=== PATIENT | male | born 1975 | race Caucasian/White ===

== ENCOUNTER 2021-04-04 14:43 | Emergency (ER) | payer OTHER, SELFPAY ==
[2021-04-04 14:57] VITALS: BP 157/104; PULSE 92; RESP 16; TEMP 37; O2SAT 98
--- NOTE | 2021-04-04 15:00 | ED.SKABFB ---
HPI - Skin/Abscess/Foreign Bdy General Chief complaint: Skin/Abscess/Foreign Body Stated complaint: Lt side cyst Time Seen by Provider: 04/04/21 15:00 Source: patient and RN notes reviewed Mode of arrival: ambulatory Limitations: no limitations History of Present Illness HPI narrative: Juice is a 45-year-old male patient who ambulated into the [facility]. Patient states he has a small cyst on his left mid axillary line that is increasing in size. Patient states that it is red and swollen. Patient denies any drainage at this time. Patient states he had this previously several years ago and was treated with antibiotics. MD complaint: abscess/boil Related Data Home Medications Medication Instructions Recorded Confirmed divalproex 500 mg tablet,delayed 500 mg PO Q12H 04/13/19 release Allergies Allergy/AdvReac Type Severity Reaction Status Date / Time No Known Allergies Allergy Verified 06/24/20 09:31 Review of Systems Review of Systems: CONSTITUTIONAL: Denies body aches, fever, chills, or sweats. EYES: Denies visual changes, redness, or discharge. ENT: Denies rhinorrhea, congestion, sore throat, or otalgia. CARDIOVASCULAR: Denies chest pain, palpitations, or edema. RESPIRATORY: Denies cough or dyspnea. GASTROINTESTINAL: Denies abdominal pain, nausea, vomiting, or diarrhea. GENITOURINARY: Denies dysuria or hematuria. SKIN: Denies rash, itching, + red swollen cyst on left chest MUSCULOSKELETAL: Denies back pain, joint pain, or myalgia. NEUROLOGIC: Denies headache, numbness, tingling, or weakness. PSYCH: Denies depression or anxiety. [facility] Family History Family History Father Hypertension Family history of chronic obstructive pulmonary disease Social History Social History Smoking status: Current every day smoker Tobacco type: e-cigarettes/vaping Alcohol intake: current Comments At time of signature, I have reviewed and agree with nursing past medical, surgical, social and family history unless otherwise noted. Please see nursing chart for further information. There is no relevant family history pertinent to the presenting complaint Exam Narrative: GENERAL: Well-appearing, well-nourished, and in no acute distress. HEAD: Normocephalic, atraumatic. EYES: EOMI. No redness or drainage. Conjunctivae normal. ENT: Mucous membranes pink and moist. Nares clear. No rhinorrhea. NECK: Normal AROM. Supple. No lymphadenopathy. MUSCULOSKELETAL: No bony tenderness. EXTREMITIES: Normal range of motion. No edema. SKIN: Warm, dry, no rash. Capillary refill normal. Normal skin turgor. 6 cm erythemic area nonfluctuant without drainage, edematous. NEURO: No focal deficits. Alert and oriented x3. Gait steady. PSYCH: Normal affect. No signs of depression or anxiety. MDM - Skin/Abscess/Foreign Bdy MDM Narrative Medical decision making narrative: Patient has a 6 cm abscess on his left mid axillary line. Area is nonfluctuant. Area is erythemic. Differential Diagnosis Differential diagnosis: Likely abscess of skin or subcutaneous tissue, dermatophytosis, cellulitis and impetigo Discharge Plan Discharge Clinical Impression: Abscess of skin or subcutaneous tissue Qualifiers: Site of cutaneous abscess: trunk Site of cutaneous abscess of trunk: unspecified site Qualified Code(s): L02.219 - Cutaneous abscess of trunk, unspecified Patient Disposition: Home, Self-Care Condition: Stable Instructions: Antibiotic Form, Cellulitis (ED), Cyst (ED) Additional Instructions: Keep area clean and dry. Wash with mild soap and water such as Dial twice daily. Follow-up with your primary care physician after completion of antibiotics for any concerns. Take your antibiotics as prescribed and until completely gone. Take ibuprofen as directed. May use Tylenol for fever and pain. Patient Language: Abdelrahman
== END 2021-04-04 15:23 | disposition home or self-care (01) ==
PROVIDERS: Emergency Provider Nurse Practitioner Family; PCP Family Medicine
DX: L02.213 Cutaneous abscess of chest wall (principal); F17.290 Nicotine dependence, other tobacco product, uncomplicated
CPT/HCPCS: 99213; G0463

== ENCOUNTER → 2021-05-15 01:17 | Outpatient (CLI) | payer OTHER, SELFPAY ==
[2021-05-16 13:55] LABS: SARS-CoV-2 RNA PCR Negative
== END ==
PROVIDERS: PCP Family Medicine; Visit Provider Physician Assistant
DX: R68.89 Other general symptoms and signs (principal); Z20.822 Contact with and (suspected) exposure to COVID-19
CPT/HCPCS: C9803; U0003; U0005

== ENCOUNTER 2021-09-24 18:33 | Emergency (ER) | payer OTHER, SELFPAY ==
[2021-09-24 18:35] VITALS: BP 159/98; PULSE 75; RESP 16; TEMP 35.5; O2SAT 98
--- NOTE | 2021-09-24 20:27 | PC.NURSE ---
2015- Pt walked up to intake desk asking for pt bracelet to be taken off and said that he wanted to leave
== END 2021-09-24 20:56 | disposition left against medical advice (07) ==
PROVIDERS: PCP Family Medicine
DX: R10.10 Upper abdominal pain, unspecified (principal)
CPT/HCPCS: 99199

== ENCOUNTER → 2022-08-13 14:14 | Outpatient (CLI) | payer OTHER, SELFPAY ==
--- NOTE | ~2022-08-13 | US_ITS ---
EXAMINATION: US soft tissue head and neck DATE: 08/13/2022 14:26 INDICATION: Posterior neck mass. TECHNIQUE: Multiple grayscale and Doppler ultrasound images of the neck were obtained. COMPARISON: None FINDINGS: There is a 1.9 x 1.0 x 1.7 cm subcutaneous hypoechoic mass in the posterior neck with small tract in the skin. IMPRESSION: 1. 1.9 cm subcutaneous mass in the posterior neck, most likely a sebaceous cyst. Reviewed, dictated and finalized at location A. IMPRESSION: 1. 1.9 cm subcutaneous mass in the posterior neck, most likely a sebaceous cyst .
== END ==
PROVIDERS: PCP Family Medicine; Visit Provider Family Medicine
DX: M54.2 Cervicalgia (principal)
CPT/HCPCS: 76536

== ENCOUNTER 2023-10-09 14:22 | Outpatient (CLI) | payer OTHER, SELFPAY ==
[2023-10-09 15:54] LABS: Valproic Acid 58.2 ug/mL (50-120)
== END 2023-10-09 14:23 | disposition home or self-care (01) ==
LOC: ANHSURGERY 14:27
PROVIDERS: Anesthesiology; PCP Family Medicine; Visit Provider Surgery
DX: Z01.818 Encounter for other preprocedural examination (principal); Z79.899 Other long term (current) drug therapy
CPT/HCPCS: 36415; 80164

== ENCOUNTER 2023-10-16 01:16 | Day surgery (SDC) | payer OTHER, SELFPAY ==
[2023-10-08 14:12] VITALS: BMI 36.6
--- NOTE | 2023-10-08 14:19 | PC.NURSE ---
Report to the Outpatient Waiting Room, entrance under the green pavilion located off [facility], at time _0630_ on date _[id number]_. Planned Procedure Time: _0830_. Time changes happen often and if your time is changed the preop area will call you the afternoon before. - You and your visitor will be asked to self-screen and do not enter if you have any COVID symptoms. - A mask is optional within the hospital at this time. Patients may have clear liquids (water, carbonated beverages, clear teas, apple juice) until 3 hours prior to surgery with a maximum of 20 ounces. - No food from midnight until time of surgery Take the following medications with a SIP of water the morning of surgery: ___Depakote DO NOT STOP ANY OF YOUR OTHER PRESCRIPTION MEDICATIONS PRIOR TO SURGERY ?EXCEPT THE FOLLOWING Medications to discontinue per physician Fish oil Date to take last [id number] Please no make-up, nail swiss, hairspray, perfume, deodorant, or body powder the day of surgery. No jewelry (including any body piercings) or valuables the day of surgery, leave them at home. Please take a shower or bath the night before, or the morning of, surgery with an antibacterial soap. Wear comfortable, loose fitting clothing. - Jewelry must be removed prior to entering the operating room. Rings and piercings that are not removed may be cut off. - The hospital will not accept responsibility for valuables. - Please leave all valuables, including medications, at home the day of surgery. If you are going home after surgery, a licensed water tanker driver must drive you home. - NO public transportation without another adult if you receive anesthesia. - We recommend that an adult stay with you for 24 hours following discharge. - We also recommend that you do not drive, make important decision, drink alcoholic beverages, or take any drugs that were not prescribed by your health care provider for at least 24 hours after your discharge time. Follow any additional instructions given to you from your surgeon. If you or anyone in your household have experienced Covid symptoms in the past week, please notify your surgeon or the nurse liaison at the phone number below for possible testing. Telephone instructions given to __Paul___and asked if any additional questions and then verbalized understanding. Patient advised to call surgeon office or pre surgery nurse liaison [phone] if any additional questions.
--- NOTE | 2023-10-15 15:41 | PM.SD2 ---
Same Day Admit/Disch: HPI History of Present Illness Chief complaint: skin cyst left flank Narrative: Vlad Man is a 48 year old male who presented last April with a left flank abscess due to an infected inclusion cyst. This was incised and drained in the office. Cultures showed only normal skin jas. The wound went on to heal but cyst remnants remain. He is taken to surgery at this time for excision of the inclusion cyst of the left flank. [facility] Surgical History Surgical History History of incision and drainage I&D of left flank abscess on 05/02/23 DEONTE Family History Family History Father Hypertension Family history of chronic obstructive pulmonary disease Social History Social History Smoking status: Current every day smoker Tobacco type: e-cigarettes/vaping Alcohol intake: current Lack of Transportation: No Lack of Food: Never True Current Housing: I Have Housing Concerned About Future Housing: No Difficulty Paying Gas/Electric Bills: No Difficulty Paying for Meds: No Currently Unemployed: No Education: Master's Degree or Higher Living arrangements: with family Spiritual care concerns: No Same Day Admit/Disch: Med Pre-admit Medications Home Medications Medication Instructions Recorded Confirmed Type divalproex 500 mg tablet,delayed 500 mg PO Q12H 04/13/19 10/16/23 History release (Depakote) lisinopril 20 mg tablet See Rx Instructions .Route 02/25/23 10/16/23 Rx .COMPLEX #90 tabs omega 1-kfn-pul-fish oil 1,200 mg 1 cap PO DAILY 10/08/23 10/16/23 History (144 mg-216 mg) capsule (Fish Oil) rosuvastatin 10 mg tablet 10 mg PO DAILY #30 tabs 10/14/23 10/16/23 Rx tramadol 50 mg tablet 50 mg PO Q6H PRN pain #7 tabs 10/16/23 Rx Review of Systems Review of Systems All systems reviewed & are unremarkable except as noted in HPI and below (HPI) Exam Const: General: comfortable, no acute distress, alert and awake HENMT: Head: normocephalic and atraumatic Mouth: Yes Normal oral and palatal mucosa present Eyes: Conjunctivae: conjunctivae normal Pupils: Equal, round and reactive pupils present EOM: EOMs intact bilaterally Neck: Neck: normal visual inspection, no lymphadenopathy and nontender Resp: Effort & Inspection: normal respiratory effort Auscultation: clear to auscultation bilaterally Cardio: Rate: regular rate Rhythm: regular rhythm Heart sounds: no gallops, no murmurs and no rubs GI: Inspection: non-distended GI Palp: Yes Soft to palpation, No Tenderness to palpation present (GI), No Hepatomegaly present and No Splenomegaly present Skin: General skin exam: no erythema Lesions: lesion noted (3 cm scar left flank from incision and drainage, residual cyst nodule) Rashes: no rashes Neuro: General: no focal motor deficits and CN's II-XI intact bilaterally Cranial nerves: Yes Equal, round and reactive pupils present, Yes Bilaterally intact EOM present, Yes facial symmetry and Yes Midline tongue present Speech: normal speech Motor exam (neuro): 5/5 motor strength present throughout and Motor abnormalities not present Extrem: General: no clubbing, cyanosis or edema and edema Psych: Affect: normal affect Thought process: Normal thought process present Insight: Good insight present (Psych) DS: Summary Time Spent with Patient Time attestation: Total time spent providing and/or coordinating discharge services: DS: Admitting Diagnosis Discharge Date 10/16/2023 Admitting Diagnosis Infected left flank inclusion cyst with abscess-drained April 2023. Wound has gone on to heal. Left flank inclusion cyst-patient desires removal to avoid recurrent cyst and possible recurrent abscess. He is taken to surgery as an outpatient for this purpose. The procedure, benefits, alternatives, risks have bee
[2023-10-16 06:30] VITALS: BP 175/103; PULSE 71; RESP 20; TEMP 36.9; O2SAT 97
[2023-10-16] MEDS: LACTATED RINGERS 1,000 ML 30 ML IV CONT (06:35)
--- NOTE | 2023-10-16 07:20 | WPDHPUPDATE1 ---
History and Physical Update Update Date/Time: 10/16/23 07:20 History and Physical has been reviewed, including an updated exam of the patient. There are NO changes in the patient's condition. Risks, benefits, and alternatives have been discussed and questions answered. Patient agrees to proceed with procedure.
--- NOTE | 2023-10-16 07:21 | P.PNAN_ITS ---
Anes - Eval Pre Procedure Procedure: Operation Date: 10/16/23 07:30 Proposed Procedures p Excision Skin Cyst Left Flank - Yair Miller MD Date/Time: 10/16/23 07:21 Pre Op Diagnosis: skin cyst left flank Patient Data Age: 48 Gender: M Height: 1.88 m Weight: 132.2 kg Allergies Allergy/AdvReac Type Severity Reaction Status Date / Time No Known Allergies Allergy Verified 10/16/23 06:05 Home Medications Medication Instructions Recorded Confirmed Type divalproex 500 mg tablet,delayed 500 mg PO Q12H 04/13/19 10/16/23 History release (Depakote) lisinopril 20 mg tablet See Rx Instructions .Route 02/25/23 10/16/23 Rx .COMPLEX #90 tabs omega 4-gzb-osv-fish oil 1,200 mg 1 cap PO DAILY 10/08/23 10/16/23 History (144 mg-216 mg) capsule (Fish Oil) rosuvastatin 10 mg tablet 10 mg PO DAILY #30 tabs 10/14/23 10/16/23 Rx Patient hx anesthesia problems: none Family hx anesthesia problems: none Results Review: All pre-operative results and documents have been reviewed as part of the pre- operative evaluation. [facility] Surgical History Surgical History History of incision and drainage I&D of left flank abscess on 05/02/23 DEONTE Family History Family History Father Hypertension Family history of chronic obstructive pulmonary disease Social History Social History Smoking status: Current every day smoker Tobacco type: e-cigarettes/vaping Alcohol intake: current Lack of Transportation: No Lack of Food: Never True Current Housing: I Have Housing Concerned About Future Housing: No Difficulty Paying Gas/Electric Bills: No Difficulty Paying for Meds: No Currently Unemployed: No Education: Master's Degree or Higher Living arrangements: with family Spiritual care concerns: No Exam Day of Procedure 10/16/23 07:21
--- NOTE | 2023-10-16 07:23 | SUR.PREOP ---
DR KOO AWARE OF HIGH BP. RECHECK 170/110
[2023-10-16] MEDS: ceFAZolin 3 GM/D5W 100 ML 100 ML IVPB (07:25)
--- NOTE | 2023-10-16 07:25 | P.PNAN_ITS ---
Anes - Eval Final PreProcedure Day of Procedure 10/16/23 07:25 Patient weight: obese Heart: regular rate and rhythm Lungs: clear to auscultation Airway: Mallampati scale class III Neurological: alert and oriented Last oral intake: >/= 8 hours ASA classification: III Emergent: no Anesthetic plan: proceed Anesthesia type and monitoring: general GIVS (may use LMA) and standard monitoring Results Review: All pre-operative results and documents have been reviewed as part of the pre- operative evaluation. Informed Consent: The patient's anesthetic plan and its attendant risks and benefits were discu ssed with the patient/family/POA. Questions were solicited and answers provided to the satisfaction of the patient/family/POA.
[2023-10-16] MEDS: BUPIVACAINE/EPINEPHRINE 0.5% 50 ML VIAL 30 ML INFILTRATE (07:44)
[2023-10-16 08:01] VITALS: BP 147/83; PULSE 86; RESP 16; O2SAT 94
--- NOTE | 2023-10-16 08:16 | W.PM.PROC2 ---
Procedure Note - Detailed Date of Procedure 10/16/23 Pre-op Diagnosis skin cyst left flank Post-op Diagnosis Same Procedure Performed Excision 3 cm inclusion cyst left flank with 2 mm margins, 3.4 cm excision. 7.5 cm layered closure. Surgeon Yair Miller MD [employer] [facility] Anesthesia MAC and Local Indications Patient had an abscess in the left flank due to an infected inclusion cyst in April. This was incised and drained. It went on to heal uneventfully. He is taken to surgery at this time for excision of the cyst remnants to prevent recurrence. Findings Previous scar was 3 cm in length. There was a nodule in the center of the scar consistent with persistent cyst. Cyst was excised with 2 mm margins. No entry into the cyst was made. Description of Procedure Patient is seen in the preoperative holding area. The area of the cyst on the left flank was marked on the skin as was the proposed elliptical excision. Patient was taken to surgery and then given anesthesia after being placed in right lateral decubitus position. The area of the cyst on the left flank was then prepped and draped. Local was infiltrated over the previously marked ellipse to anesthetize the skin and subcutaneous. Elliptical incision was made through the skin. Cautery was used for hemostasis. The skin and associated cyst were elevated and dissection was carried deep to the cyst but at least 2 mm from any of the cyst contents circumferentially. Cautery was then used for hemostasis. The wound was closed with a deep layer of 4-0 interrupted Vicryl suture. Subcuticular interrupted 4-0 Vicryl skin stitches were then placed to loosely approximate the skin. Finally the skin was closed with a running 4-0 Monocryl skin suture. The wound was dressed with Exofin surgical adhesive. The patient was awakened and taken to outpatient recovery in good condition. Sponge and needle counts were correct x2. Estimated Blood Loss -5 Pathology Yes (Skin cyst left flank) Complications No immediate complications Condition Stable Disposition Same day [facility] Billing Surgery - Charge Forward: Surgery Billing (Excision 3 cm skin cyst of the flank with 2 mm margins, 3.4 cm excision. 7.5 cm layered closure.)
[2023-10-16 08:30] VITALS: BP 142/97; PULSE 72; RESP 20
[2023-10-16 09:00] VITALS: BP 154/94; PULSE 73; RESP 20
== END 2023-10-16 09:05 | disposition home or self-care (01) ==
PROVIDERS: PCP Family Medicine; Visit Provider Surgery
PROC: (CPT 11404; principal; 2023-10-16 07:30)
DX: L72.0 Epidermal cyst (principal); F17.290 Nicotine dependence, other tobacco product, uncomplicated
CPT/HCPCS: 11404; 12032; 36415; 80164; 88305; J0360; J0690; J1100; J2250; J2405; J2704; J3010; J7120

== ENCOUNTER 2023-11-06 10:16 | Day surgery (SDC) | payer OTHER, SELFPAY ==
[2023-10-29 15:06] VITALS: BMI 37.2
[2023-10-30 12:41] VITALS: BMI 36.2
--- NOTE | 2023-11-06 07:35 | WPDANESEPPF ---
Anes - Initial Pre Proc Eval Procedure: Operation Date: 11/06/23 12:30 Proposed Procedures p Screening Colonoscopy - Caden Aragon MD <Nick Reeves DO - Last Filed: 11/06/23 14:16> Date/Time: 11/06/23 07:35 <Nick Reeves DO - Last Filed: 11/06/23 14:16> Surgeon: Caden Aragon MD <Nick Reeves DO - Last Filed: 11/06/23 14:16> Pre Op Diagnosis: Neoplasm Screening <Nick Reeves DO - Last Filed: 11/06/23 14:16> Patient Data Age: 48 Gender: M Height: 1.88 m Weight: 128 kg <Nick Reeves DO - Last Filed: 11/06/23 14:16> Allergies Allergy/AdvReac Type Severity Reaction Status Date / Time No Known Allergies Allergy Verified 11/06/23 12:31 <Nick Reeves DO - Last Filed: 11/06/23 14:16> Home Medications Medication Instructions Recorded Confirmed Type omega 4-abj-qja-fish oil 1,200 mg 1 cap PO DAILY 10/08/23 11/01/23 History (144 mg-216 mg) capsule (Fish Oil) divalproex 500 mg tablet,delayed 500 mg PO Q12H #180 tabs 10/21/23 11/01/23 Rx release (Depakote) lisinopril 20 mg tablet 20 mg PO DAILY #90 tabs 10/21/23 11/01/23 Rx rosuvastatin 10 mg tablet 10 mg PO DAILY #90 tabs 10/21/23 11/01/23 Rx sodium,potassium,mag sulfates 17.5 See Rx Instructions PO .COMPLEX 11/04/23 Rx gram-3.13 gram-1.6 gram oral soln #354 mL (Suprep Bowel Prep Kit) <Nick Reeves DO - Last Filed: 11/06/23 14:16> Patient hx anesthesia problems: none <Alex Thomas CRNA - Last Filed: 11/06/23 12:25> Family hx anesthesia problems: none <Alex Thomas CRNA - Last Filed: 11/06/23 12:25> Results Review: All pre-operative results and documents have been reviewed as part of the pre-operative evaluation. <Nick Reeves DO - Last Filed: 11/06/23 14:16> [facility] Past Medical History Medical History: Medical History Epilepsy Hyperlipemia Hypertension <Nick Revees DO - Last Filed: 11/06/23 14:16> Surgical History Surgical History: Surgical History H/O excision of mass 10/16/23 Excision 3 cm inclusion cyst left flank with 2 mm margins, 3.4 cm excision. 7.[address] Miller History of incision and drainage I&D of left flank abscess on 05/02/23 DEONTE <Nick Reeves DO - Last Filed: 11/06/23 14:16> Family History Family History: Family History Father Hypertension Family history of chronic obstructive pulmonary disease <Nick Reeves DO - Last Filed: 11/06/23 14:16> Social History Social History: Social History Smoking packs per day: 1 Smoking cigarettes per day: 20.0 Years smoked: 20 Smoking pack-years: 20.00 Smoking status: Current every day smoker Tobacco type: e-cigarettes/vaping Alcohol intake: current Drinks per week: 3 Alcohol use details: SOCIALLY Substance use: never Substance use type: does not use Do You Feel Safe in your Home?: Yes Lack of Transportation: No Lack of Food: Never True Current Housing: I Have Housing Concerned About Future Housing: No Difficulty Paying Gas/Electric Bills: No Difficulty Paying for Meds: No Currently Unemployed: No Education: Master's Degree or Higher Living arrangements: with family Occupation/Education: occupation Gender identity (if verbalized by the patient): Male Spiritual care concerns: No Agree to blood products: Yes <Nick Reeves DO - Last Filed: 11/06/23 14:16> Anes - Eval Final PreProcedure Day of Procedure 11/06/23 07:35 <Nick Reeves DO - Last Filed: 11/06/23 14:16> Patient weight: normal <Alex Thomas CRNA - Last Filed: 11/06/23 12:25> Heart: regular rate and r
[2023-11-06 12:00] VITALS: BP 151/98; PULSE 77; RESP 18; TEMP 36.9; O2SAT 99; BMI 36.6
[2023-11-06] MEDS: LACTATED RINGERS 1,000 ML 150 ML IV CONT (12:20)
--- NOTE | 2023-11-06 13:13 | PM.HPGS ---
History of Present Illness History of Present Illness Consent: Risks, benefits, and alternatives have been discussed and questions answered. Patient agrees to proceed with procedure. Chief complaint: Neoplasm Screening Narrative: Vlad Man is a 48 year old male as presents for screening colonoscopy. Patient's current weight appetite and bowel movements are normal. Patient denies abdominal pain. Has had no bleeding. Family history noncontributory. Review of Systems Review of Systems: All systems reviewed & are unremarkable except as noted in HPI and below PMFSH Past Medical History Medical History Epilepsy Hyperlipemia Hypertension Surgical History Surgical History H/O excision of mass 10/16/23 Excision 3 cm inclusion cyst left flank with 2 mm margins, 3.4 cm excision. 7.[address] Miller History of incision and drainage I&D of left flank abscess on 05/02/23 DEONTE Family History Family History Father Hypertension Family history of chronic obstructive pulmonary disease Social History Social History Smoking packs per day: 1 Smoking cigarettes per day: 20.0 Years smoked: 20 Smoking pack-years: 20.00 Smoking status: Current every day smoker Tobacco type: e-cigarettes/vaping Alcohol intake: current Drinks per week: 3 Alcohol use details: SOCIALLY Substance use: never Substance use type: does not use Do You Feel Safe in your Home?: Yes Lack of Transportation: No Lack of Food: Never True Current Housing: I Have Housing Concerned About Future Housing: No Difficulty Paying Gas/Electric Bills: No Difficulty Paying for Meds: No Currently Unemployed: No Education: Master's Degree or Higher Living arrangements: with family Occupation/Education: occupation Gender identity (if verbalized by the patient): Male Spiritual care concerns: No Agree to blood products: Yes Meds Home Medications and Allergies Home Medications Medication Instructions Recorded Confirmed Type omega 8-blj-rog-fish oil 1,200 mg 1 cap PO DAILY 10/08/23 11/01/23 History (144 mg-216 mg) capsule (Fish Oil) divalproex 500 mg tablet,delayed 500 mg PO Q12H #180 tabs 10/21/23 11/01/23 Rx release (Depakote) lisinopril 20 mg tablet 20 mg PO DAILY #90 tabs 10/21/23 11/01/23 Rx rosuvastatin 10 mg tablet 10 mg PO DAILY #90 tabs 10/21/23 11/01/23 Rx sodium,potassium,mag sulfates 17.5 See Rx Instructions PO .COMPLEX 11/04/23 Rx gram-3.13 gram-1.6 gram oral soln #354 mL (Suprep Bowel Prep Kit) Allergies Allergy/AdvReac Type Severity Reaction Status Date / Time No Known Allergies Allergy Verified 11/06/23 12:31 Vital Signs Vital Signs - 24 hr 11/06/23 12:00 Temperature 98.5 F Pulse Rate 77 Respiratory Rate 18 Blood Pressure 151/98 H Pulse Oximetry 99 Oxygen Delivery Room Air Exam Narrative: Physical exam reveals patient. Vital signs stable. HEENT exam is unremarkable. Patient is anicteric. Is are clear to auscultation and percussion is without murmur or extra sounds. Abdomen bowel sounds are present soft nontender with no organomegaly. Digital external rectal exam normal. Assessment and Plan Assessment and plan (1) Screening for colon cancer: Code(s): Z12.11 - Encounter for screening for malignant neoplasm of colon Status: Acute Assessment and Plan: Patient presents for screening colonoscopy. He appears to be at average risk for colon polyps. Further recommendations may be given after endoscopy.
[2023-11-06 13:42] VITALS: BP 146/107; PULSE 86; RESP 16; O2SAT 98
[2023-11-06 13:52] VITALS: BP 141/105; PULSE 83; RESP 16; O2SAT 98
[2023-11-06 14:02] VITALS: BP 133/108; PULSE 71; RESP 20; O2SAT 99
--- NOTE | 2023-11-06 14:16 | WPDANESPN ---
Anes - Prog Note Post-Op Date/Time: 11/06/23 14:16 Cardiovascular status: normal Respiratory status: normal Airway patency: baseline Mental status: baseline Post-Op hydration status: normal Vital Signs: Last Vital Signs Temp 36.9 C 11/06/23 12:00 Pulse 71 11/06/23 14:02 Resp 20 11/06/23 14:02 BP 133/108 H 11/06/23 14:02 Pulse Ox 99 11/06/23 14:02 O2 Del Method Room Air 11/06/23 14:02 Pain Score (VAS): 0 I/O: Intake & Output 11/05/23 11/06/23 11/06/23 23:59 07:59 15:59 Intake Total 450 Balance 450 Post-procedural complaints: none Patient Feedback: Patient satisfied with anesthetic care. Other Findings: Patient vital signs back to baseline. Patient denies nausea and vomiting. Patient's pain under control. Patient OK for discharge.
== END 2023-11-06 14:07 | disposition home or self-care (01) ==
PROVIDERS: PCP Family Medicine; Visit Provider Internal Medicine Gastroenterology
PROC: 0DJD8ZZ Inspection of Lower Intestinal Tract, Via Natural or Artificial Opening Endoscopic (ICD-10-PCS; CPT 45378; principal; 2023-11-06 12:30)
DX: Z12.11 Encounter for screening for malignant neoplasm of colon (principal); K57.30 Diverticulosis of large intestine without perforation or abscess without bleeding
CPT/HCPCS: 45378